=== PATIENT | female | born 1985 | race Caucasian/White ===

== ENCOUNTER 2017-01-15 21:28 | Emergency (ER) | payer SELFPAY ==
[2017-01-15 21:56] LABS: BASOPHIL % 0.3 % (0.0-0.4); Eosinophil % 0.5 % (0.00-5.0); Granulocytes % 46.7 % (36.0-66.0); Lymphocytes % 37.5 % (24.0-44.0); Mean Cell Volume 85.7 fl (78-100); Mean Corpuscular Hemoglobin 29.4 pg (26-32); Mean Platelet Volume 10.9 fl (6-9.5); Platelet Count 233 K/mm3 (150-450); Red Blood Count 5.31 M/mm3 (4.1-5.4); Red Cell Distribution Width 12.4 % (11.5-14.0); White Blood Count 3.8 K/mm3 (4.0-10.5)
--- NOTE | 2017-01-15 21:56 | ERPHSYRPT ---
- History of Present Illness Time Seen by Provider: 01/15/17 21:54 Source: patient Exam Limitations: no limitations Patient Subjective Stated Complaint: pt states she has had coughing x3 days and is coughing so hard she has been vomiting. pt states she has been vomiting when she easts and drinks also. pt sttes pain increases when she coughs Triage Nursing Assessment: pt alert and oriented, answers questions approp. pt ambulatory with steady gait noted. skin pink warm and dry. respirations nonlabored with lungs cta. bowel sounds present and active in all 4 quads. pt dry heaving occasionally with cough. no emesis at this time. Physician History: pt states she has had coughing x3 days and is coughing so hard she has been vomiting. pt states she has been vomiting when she eats and drinks also. pt sttes pain increases when she coughs Timing/Duration: day(s) (3 days) Allergies/Adverse Reactions: No Known Drug Allergies Allergy (Verified 01/15/17 21:45) Hx Tetanus, Diphtheria Vaccination/Date Given: No Hx Influenza Vaccination/Date Given: No Hx Pneumococcal Vaccination/Date Given: No Immunizations Up to Date: Yes - Review of Systems Constitutional: Fever Eyes: No Symptoms Ears, Nose, & Throat: Nose Congestion, Throat Pain Respiratory: Cough, Wheezing Cardiac: No Symptoms Genitourinary Symptoms: No Symptoms Musculoskeletal: No Symptoms Neurological: No Symptoms Psychological: No Symptoms - Past Medical History Pertinent Past Medical History: No - Past Surgical History Past Surgical History: No - Social History Smoking Status: Current every day smoker How long have you smoked: 12 yrs Exposure to second hand smoke: Yes Drug Use: none Patient Lives Alone: No - Female History Hx Last Menstrual Period: current Hx Now: (UNKNOWN) - Nursing Vital Signs Nursing Vital Signs: Initial Vital Signs Temperature 98.7 F Temperature Source Oral Pulse Rate 105 Respiratory Rate 18 Blood Pressure [Right Arm] 131/89 Pain Intensity 5 - Physical Exam General Appearance: no apparent distress, alert Eye Exam: PERRL/EOMI, eyes nml inspection Ears, Nose, Throat Exam: normal ENT inspection, TMs normal, pharynx normal, moist mucous membranes Neck Exam: normal inspection, non-tender, supple, full range of motion Respiratory Exam: lungs clear, No respiratory distress Cardiovascular Exam: regular rate/rhythm, normal heart sounds Gastrointestinal/Abdomen Exam: soft, No tenderness Back Exam: normal inspection, No CVA tenderness, No vertebral tenderness Extremity Exam: normal inspection, normal range of motion Neurologic Exam: alert, oriented x 3, cooperative, normal mood/affect, sensation nml, No motor deficits Skin Exam: normal color, warm, dry, No rash Lymphatic Exam: No adenopathy SpO2: 96 Oxygen Delivery: Room Air - Course Nursing assessment & vital signs reviewed: Yes Ordered Tests: Active Orders 24 hr Category Date Time Status BMP Stat Lab 01/15/17 21:52 Completed CBC W DIFF Stat Lab 01/15/17 21:52 Completed CULTURE, THROAT Stat Lab 01/15/17 21:52 Received STREP SCREEN-BETA A Stat Lab 01/15/17 21:52 Completed Medication Summary Discontinued Medications Generic Name Dose Route Start Last Admin Trade Name Walt PRN Reason Stop Dose Admin Potassium Bicarbonate 25 meq 01/15/17 22:39 01/15/17 22:41 K-Lyte 25 Meq PO 01/15/17 22:40 25 meq STAT ONE Administration Potassium Bicarbonate Confirm 01/15/17 22:41 K-Lyte 25 Meq Administered 01/15/17 22:42 Dose 25 meq .ROUTE .STK-MED ONE Promethazine HCl 25 mg 01/15/17 22:26 01/15/17 22:29 Phenergan 25 Mg Inj IM 01/15/17 22:27 25 mg STAT ONE Administration Promethazine HCl Confirm 01/15/17 22:28 Phenergan 25 Mg Inj Administered 01/15/17 22:29 Dose 25 mg .ROUTE .STK-MED ONE Lab/Rad Data: Laboratory Result Diagrams 01/15/17 21:52 01/15/17 21:52 Laboratory Results 01/15/17 01/15/17 01/15/17 Range/Units 21:52 21:52 21:52 WBC 3.8 L (4.0-10.5) K/mm3 RBC 5.31 (4.1-5.4) M/mm3 Hgb 15.6 (12.0-16.0) gm/dl Hct 45.5 (35-47) % MCV 85.7 (78-100) fl MCH 29.4 (26-32) pg MCHC 34.3 (32-36) g/dl RDW 12.4 (11.5-14.0) % Plt Count 233 (150-450) K/mm3 MPV 10.9 H (6-9.5) fl Gran % 46.7 (36.0-66.0) % Lymphocytes % 37.5 (24.0-44.0) % Monocytes % 15.0 H (0.0-12.0) % Eosinophils % 0.5 (0.00-5.0) % Basophils % 0.3 (0.0-0.4) % Basophils # 0.01 (0-0.4) Sodium 142 (136-145) mEq/L Potassium 3.3 L (3.5-5.1) mEq/L Chloride 103 (98-107) mEq/L Carbon Dioxide 25.5 (21-32) mEq/L Anion Gap 17.1 H (5-15) MEQ/L BUN 14 (9-20) mg/dL Creatinine 1.12 (0.55-1.30) mg/dl Estimated GFR > 60 ML/MIN Glucose 102 (70-110) MG/DL Calcium 8.7 (8.5-10.1) mg/dL Influenza Type A Ag NEGATIVE (NEGATIVE) Influenza Type B Ag POSITIVE (NEGATIVE) RSV (PCR) NEGATIVE (Negative) Streptococcus Screen (Negative) 01/15/17 Range/Units 21:52 WBC (4.0-10.5) K/mm3 RBC (4.1-5.4) M/mm3 Hgb (12.0-16.0) gm/dl Hct (35-47) % MCV (78-100) fl MCH (26-32) pg MCHC (32-36) g/dl RDW (11.5-14.0) % Plt Count (150-450) K/mm3 MPV (6-9.5) fl Gran % (36.0-66.0) % Lymphocytes % (24.0-44.0) % Monocytes % (0.0-12.0) % Eosinophils % (0.00-5.0) % Basophils % (0.0-0.4) % Basophils # (0-0.4) Sodium (136-145) mEq/L Potassium (3.5-5.1) mEq/L Chloride (98-107) mEq/L Carbon Dioxide (21-32) mEq/L Anion Gap (5-15) MEQ/L BUN (9-20) mg/dL Creatinine (0.55-1.30) mg/dl Estimated GFR ML/MIN Glucose (70-110) MG/DL Calcium (8.5-10.1) mg/dL Influenza Type A Ag (NEGATIVE) Influenza Type B Ag (NEGATIVE) RSV (PCR) (Negative) Streptococcus Screen NEGATIVE (Negative) - Progress Progress: unchanged Air Movement: good Blood Culture(s) Obtained: No Antibiotics given: No Counseled pt/family regarding: lab results, diagnosis, need for follow-up - Departure Time of Disposition: 23:03 Departure Disposition: Home Clinical Impression: Influenza B Condition: Stable Critical Care Time: No Referrals: SENAIT NIEVES [Primary Care Provider] - Instructions: Influenza -- Adult Additional Instructions: VIRAL ILLNESS 1. Rest at home and take any prescribed medications as directed or until gone. 2. Offer plenty of fluids as tolerated. 3. Acetaminophen or Ibuprofen as directed. 4. Be sure to follow up with your family physician or return to the emergency department if symptoms change or become worse. Prescriptions: Guaifenesin/Codeine Phos [Cheratussin AC Syrup] 5 ml PO Q6H #240 liquid Oseltamivir 75 mg [Tamiflu 75MG Capsule] 75 mg PO BID #10 cap
[2017-01-15 22:14] LABS: ANION GAP 17.1 MEQ/L (5-15); BLOOD UREA NITROGEN 14 mg/dL (9-20); CHLORIDE 103 mEq/L (98-107); Carbon Dioxide 25.5 mEq/L (21-32); Glucose 102 MG/DL (70-110); Potassium 3.3 mEq/L (3.5-5.1); SODIUM 142 mEq/L (136-145)
[2017-01-15] MEDS ORDERED: Phenergan 25 MG INJ IM ONE (22:26)
[2017-01-15] MEDS ORDERED: Phenergan 25 MG INJ ONE (22:28)
[2017-01-15] MEDS ORDERED: K-LYTE 25 MEQ PO ONE (22:39)
[2017-01-15] MEDS ORDERED: K-LYTE 25 MEQ ONE (22:41)
[2017-01-15 23:16] VITALS: BP 132/70; PULSE 89; O2SAT 98
== END 2017-01-15 23:16 | disposition home or self-care (01) ==
LOC: ED 21:28
DX: J11.1 Influenza due to unidentified influenza virus with other respiratory manifestations (principal); R05 Cough; R11.10 Vomiting, unspecified; R50.9 Fever, unspecified
CPT/HCPCS: 36415; 80048; 85025; 87070; 87430; 87631; 96372; 99284; J2550; A9270-GY